=== PATIENT | male | born 1985 ===

== ENCOUNTER 2018-01-26 14:08 | Emergency (ER) | payer BC, MEDICAID ==
[2018-01-26 14:33] VITALS: BMI 21.7
[2018-01-26 14:35] VITALS: BP 118/81; PULSE 89; TEMP 99; O2SAT 100
--- NOTE | 2018-01-26 15:50 | C.PDOC ---
History Of Present Illness 32 y/o male presents to the ED for evaluation of right hand injury. Patient states he tripped in home yesterday and fell onto his right hand. Now complaining of pain to metacarpals. No pain meds taken [employer]PER[employer]. Denies any changes in sensation. Time Seen by Provider: 01/26/18 14:42 Chief Complaint (Nursing): Finger,Hand,&Wrist History Per: Patient History/Exam Limitations: no limitations Onset/Duration Of Symptoms: Days Current Symptoms Are (Timing): Still Present Past Medical History Reviewed: Historical Data, Nursing Documentation, Vital Signs Vital Signs: Last Vital Signs Temp 99.0 F 01/26/18 14:33 Pulse 89 01/26/18 14:33 Resp 18 01/26/18 14:33 BP 118/81 01/26/18 14:33 Pulse Ox 100 01/26/18 14:33 - Medical History PMH: No Chronic Diseases Denies: Chronic Kidney Disease Surgical History: No Surg Hx Family History: States: Unknown Family Hx - Social History Hx Alcohol Use: Yes Hx Substance Use: No - Immunization History Hx Tetanus Toxoid Vaccination: No Hx Influenza Vaccination: No Hx Pneumococcal Vaccination: No Review Of Systems Musculoskeletal: Positive for: Hand Pain Skin: Negative for: Lesions Neurological: Negative for: Weakness, Numbness, Incoordination, Other (tingling) Physical Exam - Physical Exam Appears: Non-toxic, No Acute Distress Skin: Normal Color, Warm, No Rash Head: Normacephalic Eye(s): bilateral: PERRL Extremity: Normal ROM (with full AROM of right wrist and digits), Tenderness (Mild tenderness over the proximal 3rd right digit at MCP), No Deformity, No Swelling Pulses: Left Radial: Normal, Right Radial: Normal Neurological/Psych: Oriented x3, Normal Motor, Normal Sensation ED Course And Treatment O2 Sat by Pulse Oximetry: 100 (RA) Pulse Ox Interpretation: Normal - Other Rad XR R Hand X-Ray: Read By Radiologist Interpretation: No acute displaced fracture or dislocation. Medical Decision Making Medical Decision Making: Impression: right hand pain s/p fall Plan: Tylenol PO given for pain control. X-ray taken. X-ray neg. Will d/c home with kylah bandage applied. Advised pmd f/u Disposition Counseled Patient/Family Regarding: Studies Performed, Diagnosis, Need For Followup - Disposition Disposition: HOME/ ROUTINE Disposition Time: 15:51 Condition: GOOD Additional Instructions: Take Tylenol or Motrin for pain. Wear kylah bandage for comfort, Follow up with Dr Sanchez, hand surgeon, if pain persists. 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 - Scribe Statement The provider has reviewed the documentation as recorded by the Scribe (Lia Atkinson) All medical record entries made by the Scribe were at my direction and personally dictated by me. I have reviewed the chart and agree that the record accurately reflects my personal performance of the history, physical exam, medical decision making, and the department course for this patient. I have also personally directed, reviewed, and agree with the discharge instructions and disposition.
--- NOTE | 2018-01-26 15:51 | RAD ---
PROCEDURE: Right Hand Radiographs. HISTORY: fall, pain to 3rd metacarpal COMPARISON: None. FINDINGS: BONES: Bone alignment and mineralization are normal. There is no acute displaced fracture or bone destruction. JOINTS: The joint spaces are preserved. SOFT TISSUES: Normal. OTHER FINDINGS: None. IMPRESSION: No acute displaced fracture or dislocation.
[2018-01-26 15:59] VITALS: RESP 20
== END 2018-01-26 15:59 | disposition home or self-care (01) ==
LOC: C.ER 14:08
DX: S69.91XA Unspecified injury of right wrist, hand and finger(s), initial encounter (principal); W01.0XXA Fall on same level from slipping, tripping and stumbling without subsequent striking against object, initial encounter; Y92.009 Unspecified place in unspecified non-institutional (private) residence as the place of occurrence of the external cause